=== PATIENT | female | born 1960 | race Caucasian/White ===

== ENCOUNTER → 2016-12-25 | Outpatient (CLI) | payer MEDICARE, OTHER ==
[~2016-12-25] MED LIST: ACCUPRIL PO; ALBUTEROL 0.5ML; ASPIRIN81 M1 PO; BACTRIM DS TABL1 TA1 PO; BUSPIRONE HCL10 MG PO; CIPRO250 MG PO; DARVOCET-N 1001 TA2 PO; EFFIENT10 MG PO; GLUCOPHAGE XR500 MG; HUMALOG100 U/M1 SQ; HUMULIN N100 UNITS/ INJ; ISOSORBIDE DINI30 MG PO; KETOPROFEN PO; KLONOPIN; KLONOPIN0.5 MG; LOPID600 MG PO; LORTAB 5/500 TA1 TA1 PO; LOVASTATIN20 MG; MAGIC MOUTHWASH; METFORMIN HCL500 M1; METFORMIN HCL500 M1 PO; NOVOLIN N100 UNIT/1 SUBQ; OMEPRAZOLE20 M1 PO; ORUDIS75 M1; PRENATAL1 TA1 PO; PROZAC; PROZAC PO; PROZAC40 MG DOB; PYRIDIUM PO; SIMVASTATIN40 MG PO; TOPROL XL 50 MG50 M1 PO
--- NOTE | ~2016-12-25 | CR157 ---
[facility]. [facility] A Service of [facility] & [facility] RADIOLOGY TEXT RESULTS PATIENT: JUSTYNA SABA LOCATION: [facility] : 62 UNIT #: [id number] AGE: [address]: Abdon Rivas MD SEX: F ORDER DR: [id number] [address] [address] [id number] O MR#: [id number] Acc #: [id number] NAME: JUSTYNA SABA : 1960 SEX: F STUDY DATE/TIME: 12/25/2016 13:10 UNIT: [facility] ROOM: STUDY DESCRIPTION: CR Humerus Min 2 View Rt Attending Physician: Abdon Rivas M.D. Referring Physician: Abdon Rivas M.D. Ordering Physician: Abdon Rivas M.D. Primary Care Physician: Ulisses Caputo M.D. MEDICAL IMAGING REPORT This report is preliminary unless electronic signature is present. EXAM Two views right humerus, 12/25/2016 HISTORY Right humerus pain for 2 weeks. COMPARISON None. FINDINGS No fracture. No dislocation. Shoulder and elbow joints appear appropriately located. No osteolytic or osteoblastic abnormality. IMPRESSION Normal 2 views right shoulder. Dictated by... Candice Walter M.D. THIS IS AN ELECTRONICALLY VERIFIED REPORT Candice Walter M.D. at 12/30/2016 8:43 AM LLH/pcl TD: 12/26/2016 16:01 JOB #: [id number] MEDICAL IMAGING REPORT Page 1 of 1
--- NOTE | ~2016-12-25 | CR58 ---
[facility]. [facility] A Service of [facility] & [facility] RADIOLOGY TEXT RESULTS PATIENT: JUSTYNA SABA LOCATION: [facility] : 62 UNIT #: [id number] AGE: [address]: Abdon Rivas MD SEX: F ORDER DR: [id number] [place] [id number] O MR#: [id number] Acc #: [id number] NAME: JUSTYNA SABA : 1960 SEX: F STUDY DATE/TIME: 12/25/2016 13:10 UNIT: [facility] ROOM: STUDY DESCRIPTION: CR Cervical Spine 2 or 3 Views Attending Physician: Abdon Rivas M.D. Referring Physician: Abdon Rivas M.D. Ordering Physician: Abdon Rivas M.D. Primary Care Physician: Ulisses Caputo M.D. MEDICAL IMAGING REPORT This report is preliminary unless electronic signature is present. EXAM Cervical spine. CLINICAL HISTORY Neck pain, status post trauma. Two week duration. FINDINGS Four views of the cervical spine without comparison. There is no acute fracture. Patient has mild grade 1 anterolisthesis of C3 on C4 (3 mm). There is multilevel degenerative changes consistent with disc space narrowing, osteophyte formation, and facet arthropathy. Prevertebral soft tissues are normal. IMPRESSION 1. Negative for fracture. 2. Multilevel degenerative change including grade 1 anterolisthesis of C3 on C4. 1. Dictated by... Stef Huntley M.D. THIS IS AN ELECTRONICALLY VERIFIED REPORT Stef Huntley M.D. at 12/26/2016 8:01 PM TOM/ruma TD: 12/26/2016 15:59 JOB #: [id number] MEDICAL IMAGING REPORT Page 1 of 1
== END | disposition home or self-care (01) ==
LOC: SRAD 12:57
DX: M54.2 Cervicalgia (principal); M47.892 Other spondylosis, cervical region; M43.12 Spondylolisthesis, cervical region
CPT/HCPCS: 72040; 73060